=== PATIENT | female | born 1985 | race Caucasian/White ===

== ENCOUNTER 2019-04-10 15:05 | Emergency (ER) | payer OTHER, SELFPAY ==
--- NOTE | 2019-04-10 15:09 | ED.URI ---
HPI - URI/Sore Throat General Chief Complaint: Upper Respiratory Infection Stated Complaint: cough Time Seen by Provider: 04/10/19 15:09 Source: patient and RN notes reviewed History of Present Illness HPI Narrative: Patient is a 33-year-old female presents the urgent care with complaints of a dry cough for the last 2 weeks. Patient denies of any fever, shortness of breath, chest pain, nausea, vomiting. Patient has been using Mucinex without much relief. 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 No other acute complaints. No acute distress noted. Patient read the plan of care. Related Data Home Medications Medication Instructions Recorded Confirmed Mucinex 04/10/19 Allergies Allergy/AdvReac Type Severity Reaction Status Date / Time No Known Allergies Allergy Verified 04/10/19 15:23 Review of Systems Review of Systems: Narrative: CONSTITUTIONAL: Denies fever, chills, or sweats. EYES: Denies visual changes, redness, or discharge. ENT: Denies rhinorrhea, congestion, sore throat, or otalgia. CARDIOVASCULAR: Denies chest pain, palpitations, or edema. RESPIRATORY: Reports of dry nonproductive cough without dyspnea GASTROINTESTINAL: Denies abdominal pain, nausea, vomiting, or diarrhea. GENITOURINARY: Denies dysuria or hematuria. SKIN: Denies rash or itching. MUSCULOSKELETAL: Denies back pain, joint pain, or myalgia. NEUROLOGIC: Denies headache, numbness, or weakness. PMFSH Comments At the time of my signature, I reviewed and agree with the nursing past medical, surgical, social, and family history. There is no relevant family history pertinent to the patient complaint. Exam Narrative: Exam Narrative: GENERAL: This is a well-nourished, well-developed patient, in no apparent distress. HEAD: normocephalic, atraumatic. EYES: PERRL. Sclera clear/white. Vision is grossly intact. EARS: External ears normal, auditory canals clear and without drainage, TMs normal without perforation. Hearing grossly intact. NOSE: External nose normal with no obvious nasal discharge, nares without redness, no rhinorrhea. THROAT: Mucous membranes moist, posterior pharynx clear. NECK: Neck supple CARDIOVASCULAR: Regular rate and rhythm without murmurs, gallops, or rubs. RESPIRATORY: Notable persistent dry cough. Slight expiratory crackles to bilateral bases SKIN: warm, intact with no suspicious lesions or rash, good texture and turgor. NEURO: awake, alert, and oriented to person, place and time. There were no obvious focal neurologic abnormalities. EXTREMITIES: No clubbing, cyanosis, or edema. Course Vital Signs Vital signs: Vital Signs Temperature 97.6 F 04/10/19 15:15 Pulse Rate 102 H 04/10/19 15:15 Respiratory Rate 04/10/19 15:15 Blood Pressure 143/86 H 04/10/19 15:15 Pulse Oximetry 100 04/10/19 15:15 Temperature 97.6 F 04/10/19 15:15 Pulse Rate 102 H 04/10/19 15:15 Respiratory Rate 04/10/19 15:15 Blood Pressure 143/86 H 04/10/19 15:15 Pulse Oximetry 100 04/10/19 15:15 Reviewed?patient is informed that they may have pre-hypertension or hypertension based on a blood pressure reading in the department. I recommend the patient call the primary care provider listed on their discharge instructions or a physician of their choice this week to arrange follow-up for further evaluation of possible pre-hypertension or hypertension. MDM - URI/Sore Throat MDM Narrative Medical decision making narrative: Advised the patient to complete steroid regimen as prescribed. Use inhaler as needed for coughing fits or shortness of breath. Use Tessalon Perles as needed for nonproductive cough. Increase water intake. If you develop any increase in cough associated with shortness of breath, wheezing, chest pain, fever?go to the emergency room. Follow-up with PCP within 2 to 5 days or for worsening symptoms or failure to improve. Differential Diagnosis Differentia
[2019-04-10 15:15] VITALS: BP 143/86; PULSE 102; RESP 20; TEMP 36.4; O2SAT 100
== END 2019-04-10 15:44 | disposition home or self-care (01) ==
PROVIDERS: Emergency Provider Nurse Practitioner Family
DX: J40 Bronchitis, not specified as acute or chronic (principal)
CPT/HCPCS: 99213; G0463